=== PATIENT | female | born 1965 | race Asian ===

== ENCOUNTER 2017-03-13 07:13 | Emergency (ER) | payer OTHER ==
[~2017-03-13] VITALS: Ht 157.5 cm; Wt 87.1 kg
[2017-03-13 12:00] VITALS: BP 134/70
== END 2017-03-13 12:00 | disposition home or self-care (01) ==
LOC: ED 07:13
DX: S62.616A Displaced fracture of proximal phalanx of right little finger, initial encounter for closed fracture (principal); S13.4XXA Sprain of ligaments of cervical spine, initial encounter; S01.01XA Laceration without foreign body of scalp, initial encounter; S80.02XA Contusion of left knee, initial encounter; S20.219A Contusion of unspecified front wall of thorax, initial encounter; V43.52XA Car driver injured in collision with other type car in traffic accident, initial encounter; Y93.I9 Activity, other involving external motion; Y92.410 Unspecified street and highway as the place of occurrence of the external cause; Y99.8 Other external cause status
CPT/HCPCS: J1885; J2001; J2270; J2405

== ENCOUNTER 2017-03-23 19:11 | Emergency (ER) | payer OTHER ==
[~2017-03-23] VITALS: Ht 157.5 cm; Wt 94.3 kg
[2017-03-23 19:34] VITALS: Ht 157.5 cm; Wt 94.3 kg
[2017-03-23 22:35] VITALS: BP 139/89
== END 2017-03-23 22:35 | disposition home or self-care (01) ==
LOC: ED 19:11
DX: S20.219A Contusion of unspecified front wall of thorax, initial encounter (principal); J40 Bronchitis, not specified as acute or chronic; E11.9 Type 2 diabetes mellitus without complications; V89.2XXA Person injured in unspecified motor-vehicle accident, traffic, initial encounter; Y93.89 Activity, other specified; Y92.413 State road as the place of occurrence of the external cause; Y99.8 Other external cause status
CPT/HCPCS: J1885